=== PATIENT | male | born 1950 | race American Indian/Alaskan Native ===

== ENCOUNTER 2018-08-07 08:10 | Day surgery (SDC) | payer MEDICARE, OTHER | END 2018-08-07 08:11 | disposition home or self-care (01) | LOC: GIO 08:10 | PROVIDERS: ATTEND Internal Medicine Gastroenterology | DX: D64.9 Anemia, unspecified (principal); R19.7 Diarrhea, unspecified; R19.4 Change in bowel habit; E11.9 Type 2 diabetes mellitus without complications; E78.00 Pure hypercholesterolemia, unspecified; I10 Essential (primary) hypertension; Z53.8 Procedure and treatment not carried out for other reasons ==